=== PATIENT | male | born 1995 | race Caucasian/White ===

== ENCOUNTER 2019-10-27 20:35 | Emergency (ER) | payer OTHER ==
--- NOTE | 2019-10-27 21:29 | RADIOLOGY REPORT (SQ) ---
CLINICAL INDICATION: dropped 45 lb weight on foot. . TECHNIQUE: 3 view(s) were obtained of the left foot. COMPARISON: None. FINDINGS: No acute displaced fracture is identified of the foot. Alignment appears anatomic. Joint spaces are within normal limits for age. Soft tissue swelling. IMPRESSION: No evidence of acute displaced fracture of the foot.
[2019-10-27] MEDS ORDERED: HYDROCODONE/ACETAMINOPHEN 5-325 MG TABLET PO ONE (22:36)
--- NOTE | 2019-10-27 23:20 | RADIOLOGY REPORT (SQ) ---
CT LOWER EXTREMITY WITHOUT IV CONTRAST EXAM DATE: 10/27/2019 10:36 PM CDT HISTORY: Foot injury. COMPARISON: None. TECHNIQUE: CT scan of the left foot without IV contrast. This exam was performed according to our departmental dose-optimization program, which includes automated exposure control, adjustment of the mA and/or kV according to patient size and/or use of iterative reconstruction technique. FINDINGS: No acute fracture or dislocation is seen. The joint spaces are preserved. There is diffuse soft tissue swelling overlying the dorsum of the left foot, with an approximately 1.8 x 4.6 cm hematoma. No foreign body is seen. The tendons are grossly intact. IMPRESSION: 1. Diffuse soft tissue swelling with hematoma within the dorsum of the left foot. 2. No acute fracture or foreign body.
[2019-10-27] MEDS ORDERED: HYDROCODONE/ACETAMINOPHEN 5-325 MG (6 TAB/ER DISP) PO PRN (23:31)
--- NOTE | 2019-10-27 23:37 | ER Document Report ---
Entered by CORRINE PEREZ SCRIBE 10/27/19 1950 Acting as scribe for:BLAIR SANTAMARIA DO ED Extremity Problem, Lower - General Chief Complaint: Foot Injury Stated Complaint: LEFT FOOT SWELLING Primary Care Provider: GÉNESIS LOZOYA JR, DO [ACTIVE PROVISIONAL STAFF] - 10/28/19 Mode of Arrival: Wheelchair Information source: Patient Notes: This 24 year old male patient presents to the ED today with complaints of left foot pain and swelling that started around 1900 tonight. Patient states that he was lifting weights when he dropped a 45 lb weight from a height of 3 ft directly onto his left foot. He describes the pain as a shooting pain at a level of 4/5. He reports that the pain is intolerable when he ambulates. He notes that he has received a tetanus booster within the last 5 years. Denies any chronic medical problems or taking medications. - Related Data Allergies/Adverse Reactions: No Known Allergies Allergy (Unverified 10/27/19 20:43) Past Medical History - General Information source: Patient - Social History Smoking Status: Never Smoker Cigarette use (# per day): No Chew tobacco use (# tins/day): No Smoking Education Provided: No Frequency of alcohol use: None Drug Abuse: None Lives with: Spouse/Significant other Family History: Reviewed & Not Pertinent Patient has suicidal ideation: No Patient has homicidal ideation: No - Medical History Medical History: Negative Past Surgical History: Reports: Hx Abdominal Surgery - hernia Review of Systems - Review of Systems Constitutional: No symptoms reported EENT: No symptoms reported Cardiovascular: No symptoms reported Respiratory: No symptoms reported Gastrointestinal: No symptoms reported Genitourinary: No symptoms reported Male Genitourinary: No symptoms reported Musculoskeletal: See HPI, Other - Left foot pain and swelling Skin: See HPI, Other - Abrasion to left foot Hematologic/Lymphatic: No symptoms reported Neurological/Psychological: No symptoms reported Physical Exam - Vital signs Vitals: Temp Pulse Resp BP Pulse Ox 99.5 F 100 18 145/79 H 99 10/27/19 20:41 10/27/19 20:41 10/27/19 20:41 10/27/19 20:41 10/27/19 20:41 - General General appearance: Alert In distress: None - HEENT Head: Normocephalic, Atraumatic Eyes: Normal Pupils: PERRL - Respiratory Respiratory status: No respiratory distress Chest status: Nontender Breath sounds: Normal Chest palpation: Normal - Cardiovascular Rhythm: Regular Heart sounds: Normal auscultation Murmur: No Friction rub: No Gallop: None auscultated - Abdominal Inspection: Normal Distension: No distension Bowel sounds: Normal Tenderness: Nontender - Abdomen soft Organomegaly: No organomegaly - Extremities General upper extremity: Normal inspection Foot: Abrasion - Left foot, Edema - Left foot - Neurological Neuro grossly intact: Yes Cognition: Normal Orientation: AAOx4 Downey Coma Scale Eye Opening: Spontaneous Downey Coma Scale Verbal: Oriented Karine Coma Scale Motor: Obeys Commands Karine Coma Scale Total: 15 - Psychological Associated symptoms: Normal affect, Normal mood - Skin Skin irregularity: other - Abrasion noted across left forefoot along 1st-5th phalanx. Moderate diffuse soft tissue swelling to dorsal surface of left foot. Course - Re-evaluation Re-evalutation: 10/27/19 23:45 MDM 24 year old with blunt trauma to left foot. Impressive STS of foot. No fx but hematoma noted on ct. He could not bear weight at all after xray, so due to this and the amount of sts decided to get ct. Will have him follow up with ortho and place on crutches. - Vital Signs Vital signs: Temp Pulse Resp BP Pulse Ox 99.5 F 100 18 145/79 H 99 10/27/19 20:45 10/27/19 20:41 10/27/19 20:41 10/27/19 20:41 10/27/19 20:41 Discharge - Discharge Clinical Impression: Contusion of left foot Qualifiers: Encounter type: initial encounter Qualified Code(s): S90.32XA - Contusion of left foot, initial encounter Condition: Good Disposition: HOME, SELF-CARE Instructions: Contusion ([facility]), Use of Crutches ([facility]), Ice Packs ([facility]) Additional Instructions: Rest, ice and elevate left foot. Take norco as needed for pain. Please return here for any problems or any concerns. Call Dr. Lozoya tomorrow for follow up. Forms: Return to Work Referrals: GÉNESIS LOZOYA JR, [ACTIVE PROVISIONAL STAFF] - 10/28/19 I personally performed the services described in the documentation, reviewed and edited the documentation which was dictated to the scribe in my presence, and it accurately records my words and actions.
[2019-10-28 00:08] VITALS: BP 155/63
== END 2019-10-28 | disposition home or self-care (01) ==
LOC: ER 20:35
DX: S90.32XA Contusion of left foot, initial encounter (principal); S90.812A Abrasion, left foot, initial encounter; W20.8XXA Other cause of strike by thrown, projected or falling object, initial encounter; Y93.B9 Activity, other involving muscle strengthening exercises
CPT/HCPCS: 99284

== ENCOUNTER 2019-11-11 21:13 | Emergency (ER) | payer OTHER ==
--- NOTE | 2019-11-11 21:52 | ER Document Report ---
ED Medical Screen (RME) - General Chief Complaint: Foot Injury Stated Complaint: LEFT FOOT INJURY Time Seen by Provider: 11/11/19 21:46 Notes: HPI: 24-year-old male presenting to the emergency department for worsening swelling to the left foot. Patient injured the foot by dropping a weight on the foot 3 weeks ago. States he had an x-ray that did not show a fracture but does continue to have significant swelling of the foot. Patient noticed increased swelling and redness over the dorsum of the foot over the last few days and today he picked at the scab over top of the dorsal foot and a large amount of pus drained out. No fever PHYSICAL EXAMINATION: There is significant swelling to the left foot, dorsalis pedis and posterior tibial pulses are present in the left ankle and foot. There is an open wound draining purulent material from the dorsum of the left foot at the base of the second toe. There is significant erythema over the distal aspect of the dorsal left foot I have greeted and performed a rapid initial assessment of this patient. A comprehensive ED assessment and evaluation of the patient, analysis of test results and completion of medical decision making process will be conducted by an additional ED providers. - Related Data Allergies/Adverse Reactions: No Known Allergies Allergy (Unverified 10/27/19 20:43) Past Medical History Past Surgical History: Reports: Hx Abdominal Surgery - hernia Physical Exam - Vital signs Vitals: Temp Pulse Resp BP Pulse Ox 97.9 F 78 16 147/48 H 99 11/11/19 21:20 11/11/19 21:20 11/11/19 21:20 11/11/19 21:20 11/11/19 21:20 Course - Vital Signs Vital signs: Temp Pulse Resp BP Pulse Ox 97.9 F 78 16 147/48 H 99 11/11/19 21:20 11/11/19 21:20 11/11/19 21:20 11/11/19 21:20 11/11/19 21:20
[2019-11-11 21:55] VITALS: BP 147/48
--- NOTE | 2019-11-11 22:25 | RADIOLOGY REPORT (SQ) ---
CLINICAL INDICATION: infection. . TECHNIQUE: 3 view(s) were obtained of the left foot. COMPARISON: None. FINDINGS: No acute displaced fracture is identified of the foot. Alignment appears anatomic. Joint spaces are within normal limits for age. Soft tissue swelling. No retained radiopaque foreign body.. IMPRESSION: No evidence of acute displaced fracture of the foot. No retained radiopaque foreign body. Soft tissue swelling. No plain radiographic evidence of osteomyelitis
[2019-11-11 22:49] LABS: ABSOLUTE BASOPHILS # (AUTO) 0.1 10^3/uL (0.0-0.2); ABSOLUTE EOSINOPHILS # (AUTO) 0.6 10^3/uL (0.0-0.6); ABSOLUTE NEUT (AUTO) 6.5 10^3/uL (1.7-8.2); BASOPHILS % (AUTO) 0.5 % (0-2); EOSINOPHILS % (AUTO) 4.8 % (0-6); HEMATOCRIT 43.8 % (37.9-51.0); HEMOGLOBIN 15.7 g/dL (13.5-17.0); LYMPHOCYTES % (AUTO) 32.8 % (13-45); MEAN CORPUSCULAR HEMOGLOBIN 29.2 pg (27.0-33.4); MEAN CORPUSCULAR HGB CONC 35.8 g/dL (32.0-36.0); MEAN CORPUSCULAR VOLUME 82 fl (80-97); MONOCYTES % (AUTO) 8.4 % (3-13); PLATELET COUNT 310 10^3/uL (150-450); RED BLOOD COUNT 5.37 10^6/uL (4.35-5.55); RED CELL DISTRIBUTION WIDTH 14.5 % (11.5-14.0); SEGMENTED NEUTROPHILS % (AUTO) 53.5 % (42-78); TOTAL CELLS COUNTED % (AUTO) 100 %; WHITE BLOOD COUNT 12.2 10^3/uL (4.0-10.5)
[2019-11-11 23:09] LABS: ALBUMIN 4.7 g/dL (3.5-5.0); ALKALINE PHOSPHATASE 39 U/L (38-126); ANION GAP 11 (5-19); ASPARTATE AMINO TRANSFERASE 49 U/L (17-59); BILIRUBIN,TOTAL 0.8 mg/dL (0.2-1.3); BLOOD UREA NITROGEN 19 mg/dL (7-20); CALCIUM 9.5 mg/dL (8.4-10.2); CARBON DIOXIDE 28 mmol/L (22-30); CHLORIDE 99 mmol/L (98-107); GLUCOSE 97 mg/dL (75-110); POTASSIUM 4.1 mmol/L (3.6-5.0); TOTAL PROTEIN 8.2 g/dL (6.3-8.2)
[2019-11-11] MEDS ORDERED: CEPHALEXIN 500 MG CAPSULE PO ONE (23:20)
--- NOTE | 2019-11-11 23:25 | ER Document Report ---
Entered by SHAKIRA HALEY SCRIBE 11/11/19 [id number] Acting as scribe for:BLAIR SANTAMARIA DO ED General - General Chief Complaint: wound check Stated Complaint: LEFT FOOT INJURY Time Seen by Provider: 11/11/19 21:46 Information source: Patient Notes: This 24-year-old male presents to the emergency department complaining of left foot pain and swelling that began three weeks ago. Patient was seen by this emergency department for the initial incident where patient dropped a weight on his left foot. X-ray and CT results showed that patient did not have a fracture. Patient explains that he has been working with [facility] for further care for his injury. Patient states that today while taking off the boot, the scab on his foot peeled off. Patient reports brown and bloody pus draining from the site. Patient denies fever. - Related Data Allergies/Adverse Reactions: No Known Allergies Allergy (Unverified 10/27/19 20:43) Past Medical History - General Information source: Patient - Social History Smoking Status: Never Smoker Cigarette use (# per day): No Chew tobacco use (# tins/day): No Frequency of alcohol use: None Drug Abuse: None Family History: Reviewed & Not Pertinent Patient has homicidal ideation: No - Medical History Medical History: Negative Past Surgical History: Reports: Hx Abdominal Surgery - hernia Review of Systems - Review of Systems Constitutional: See HPI. denies: Fever EENT: No symptoms reported Cardiovascular: No symptoms reported Respiratory: No symptoms reported Gastrointestinal: No symptoms reported Genitourinary: No symptoms reported Male Genitourinary: No symptoms reported Musculoskeletal: See HPI, Other - Left foot pain and swelling Skin: No symptoms reported Hematologic/Lymphatic: No symptoms reported Neurological/Psychological: No symptoms reported -: Yes All other systems reviewed and negative Physical Exam - Vital signs Vitals: Temp Pulse Resp BP Pulse Ox 97.9 F 78 16 147/48 H 99 11/11/19 21:20 11/11/19 21:20 11/11/19 21:20 11/11/19 21:20 11/11/19 21:20 - Notes Notes: Physical Exam: General: Alert, appears well. HEENT: Normocephalic. Atraumatic. PERRL. Extraocular movements intact. O ropharynx clear. Neck: Supple. Non-tender. Respiratory: No respiratory distress. Clear and equal breath sounds bilaterally. Cardiovascular: Regular rate and rhythm. Abdominal: Normal Inspection. Non-tender. No distension. Normal Bowel Sounds. Back: No gross abnormalities. Extremities: Moves all four extremities. Upper extremities: Normal inspection. Normal ROM. Lower extremities: Mild to moderate soft tissue swelling. On the left foot there is a 1.5 cm X 4mm eschar with no active bleeding but oozing serosanguineous fluid. No edema. Normal ROM. Neurological: Normal cognition. AAOx4. Normal speech. Psychological: Normal affect. Normal Mood. Skin: Warm. Dry. Normal color. Course - Re-evaluation Re-evalutation: 11/11/19 23:23 MDM 24 year old with left foot crush type injury about 2.5 weeks ago. It is improving some but picked off a scab tonight and thought there was some pus draining. Foot is smaller than origianlly - I saw him after original injury. Perhaps mild cellulitis is present. He is to follow up at [facility] tomorrow. Discussed return precautions. - Vital Signs Vital signs: Temp Pulse Resp BP Pulse Ox 97.9 F 78 16 147/48 H 99 11/11/19 21:51 11/11/19 21:20 11/11/19 21:20 11/11/19 21:20 11/11/19 21:20 - Laboratory Result Diagrams: 11/11/19 22:40 11/11/19 22:40 Laboratory results interpreted by me: 11/11/19 11/11/19 22:40 22:40 WBC 12.2 H RDW 14.5 H ALT 53 H Discharge - Discharge Clinical Impression: Left foot pain Condition: Good Disposition: HOME, SELF-CARE Instructions: Contusion ([facility]), Ice & Elevation ([facility]), Ice Packs ([facility]) Additional Instructions: Rest, ice and elevate the left foot. See your [facility] in follow up. Visit them tomorrow. Return here for swelling, redness or drainage from the wound. Prescriptions: Cephalexin Monohydrate [Keflex 500 mg Capsule] 500 mg PO QID #30 capsule I personally performed the services described in the documentation, reviewed and edited the documentation which was dictated to the scribe in my presence, and it accurately records my words and actions.
== END 2019-11-11 23:44 | disposition home or self-care (01) ==
LOC: ER 21:13
DX: S97.82XA Crushing injury of left foot, initial encounter (principal); W20.8XXA Other cause of strike by thrown, projected or falling object, initial encounter
CPT/HCPCS: 36415; 80053; 85025; 87070; 87075; 87205; 99283

== ENCOUNTER → 2019-12-06 | Outpatient (CLI) | payer OTHER ==
--- NOTE | 2019-12-06 11:53 | RADIOLOGY REPORT (SQ) ---
EXAM DESCRIPTION: FOOT LEFT COMPLETE IMAGES COMPLETED DATE/TIME: 12/06/2019 11:32 am REASON FOR STUDY: NON-PRS CHRONIC ULCER OTH PRT LEFT FOOT W FAT LAYER EXPOSED L97.522 NON-PRS CHRON IC ULCER OTH PRT LEFT FOOT W FAT LAYER COMPARISON: 11/11/2019 NUMBER OF VIEWS: Three views. TECHNIQUE: AP, lateral and oblique radiographic images acquired of the left foot. LIMITATIONS: None. FINDINGS: MINERALIZATION: Normal. BONES: No acute fracture, erosions, or dislocation. No worrisome bone lesions. JOINTS: No effusions. SOFT TISSUES: Marked decrease in the soft tissue swelling along the dorsal aspect of the mid-forefoo t since the previous examination. The patient has a known chronic ulcer. No foreign body. OTHER: No other significant finding. IMPRESSION: 1. No acute osseous findings. 2. Marked decrease in this soft tissue swelling since the prior study dated 11/11/2019. TECHNICAL DOCUMENTATION: JOB ID: [id number] 2010 [employer]- All Rights Reserved Reading location - IP/workstation name: [email or web address]
== END ==
LOC: WC 11:03
PROVIDERS: ATTEND Preventive Medicine Undersea and Hyperbaric Medicine
DX: L97.522 Non-pressure chronic ulcer of other part of left foot with fat layer exposed (principal)